=== PATIENT | female | born 1955 | race Caucasian/White ===

== ENCOUNTER → 2016-03-21 | Day surgery (SDC) | payer MEDICARE, OTHER ==
[~2016-03-21] MED LIST: ALPRAZolam 0.25 MG TAB ONE
--- NOTE | 2016-03-21 14:17 | MM ---
EXAMINATION TYPE: MG discontinued stereo core LT DATE OF EXAM: 03/21/2016 11:34 AM COMPARISON: Outside mammogram August 06, 2016. CLINICAL HISTORY: Prior left-sided breast cancer with new abnormal mammogram TECHNIQUE: Stereotactic guided core biopsy of left breast. FINDINGS: The procedure of stereotactic guided core biopsy was explained to the patient. Benefits, a lternatives, and risks were discussed. An informed consent was then obtained. The [facility] pathway for biopsy was chosen. Shortness pathway was cranial approach. Upon trying to localize the area of concern due to posterior location and deformity related to prior lumpectomy and treatment changes, area cannot BE successfully localized for safe stereotactic guided core biopsy. Mcguire rgeon canceled procedure. Options at this point include short term mammogram follow-up as area could reflect dystrophic calcifi cations at scar site, targeted ultrasound correlation, or attempted surgical reexcision. IMPRESSION: UNSUCCESSFUL STEREOTACTIC GUIDED CORE BIOPSY OF AREA OF CONCERN IN THE LEFT BREAST, PROCEDURE CANCELE D.
== END ==
LOC: RADMAMWWP 09:50
PROVIDERS: ATTEND Surgery
DX: R92.8 Other abnormal and inconclusive findings on diagnostic imaging of breast (principal); Z85.3 Personal history of malignant neoplasm of breast; Z98.890 Other specified postprocedural states; Z53.09 Procedure and treatment not carried out because of other contraindication

== ENCOUNTER 2016-03-24 07:55 | Day surgery (SDC) | payer MEDICARE, OTHER ==
[2016-03-23 08:53] VITALS: BMI 24.2
[~2016-03-24 07:55] MED LIST changes: -ALPRAZolam 0.25 MG TAB ONE; +DEXAMETHASONE SOD PHOSPHATE 10 MG/ML 1 ML VIAL IV ONE; +HEPARIN SODIUM,PORCINE 5,000 UNIT/ML 1 ML VIAL SQ ONE; +HYDROmorphone 1 MG/ML 1 ML SYRINGE IVP PRN; +LACTATED RINGERS 1,000 ML IV SCH; +MIDAZOLAM 2 MG/2 ML VIAL IV PRN; +ONDANSETRON 4 MG/2 ML VIAL IVP ONE; +SCOPOLAMINE 1.5MG/72HR PATCH TRANSDERM ONE; +ceFAZolin 2 GM in SODIUM CHLORIDE 0.9% 100 ML IVPB ONE
--- NOTE | 2016-03-24 08:04 | P.GSHP ---
History of Present Illness H&P Date: 03/24/16 Chief Complaint: Abnormal left mammogram This is a 60-year-old female who had a recent abnormality on left mammogram. Patient was initially scheduled for core biopsy. Due to the location the core biopsy cannot be performed. The patient appears history of left breast cancer. She presents today for left breast biopsy with needle localization. - Constitutional Constitutional: Reports as per HPI Past Medical History Past Medical History: Cancer Additional Past Medical History / Comment(s): breast cancer 8 yrs ago History of Any Multi-Drug Resistant Organisms: None Reported Past Surgical History: Breast Surgery, Cholecystectomy, Hysterectomy Additional Past Surgical History / Comment(s): mu. cataract removal. left breast lumpectomy with radiation Past Anesthesia/Blood Transfusion Reactions: No Reported Reaction Past Psychological History: Anxiety Smoking Status: Never smoker Past Alcohol Use History: None Reported Past Drug Use History: None Reported - Past Family History Mother Family Medical History: Cancer Additional Family Medical History / Comment(s): lung cancer Sister(s) Family Medical History: Cancer Additional Family Medical History / Comment(s): uterine and breast Medications and Allergies Home Medications Medication Instructions Recorded Confirmed Type No Known Home Medications [No 03/23/16 03/23/16 History Known Home Medications] Allergies Allergy/AdvReac Type Severity Reaction Status Date / Time No Known Allergies Allergy Verified 03/23/16 08:42 Surgical - Exam - General well developed, no distress - Eyes PERRL - ENT normal pinna - Neck no masses - Respiratory normal expansion - Cardiovascular Rhythm: regular - Abdomen Abdomen: soft, non tender Breasts exam shows no evidence of axillary or cervical adenopathy. Left breast has evidence of previous lumpectomy with radiation scarring. Right breast is within normal limits. Assessment and Plan Plan: Abnormal left mammogram. Perform left breast biopsy with needle localization.
[2016-03-24] MEDS ORDERED: ALPRAZolam 0.25 MG TAB PO STA (08:21)
[2016-03-24] MEDS ORDERED: LIDOCAINE 1% 20 ML VIAL (10MG/ML) FOR IV START INTRADERMA ONE (08:29)
[2016-03-24] MEDS ORDERED: LIDOCAINE 1% INJ 10MG/ML (20 ML MDV) SQ ONE (09:22)
[2016-03-24] MEDS ORDERED: SODIUM BICARB 4% 5 ML VIAL (0.48 MEQ/ML) MISCELLANE ONE (09:22)
[2016-03-24] MEDS ORDERED: SUCCINYLCHOLINE CHLORIDE 100 MG/5 ML SYR IV ONE (11:17)
[2016-03-24] MEDS ORDERED: MIDAZOLAM 2 MG/2 ML VIAL ONE (11:17)
[2016-03-24] MEDS ORDERED: fentaNYL (PF) 50 MCG/ML 2 ML AMP ONE (11:17)
[2016-03-24] MEDS ORDERED: ePHEDrine 50 MG/ML 1 ML AMP ONE (11:17)
[2016-03-24] MEDS ORDERED: LIDOCAINE 1% INJ 10MG/ML (20 ML MDV) ONE (11:17)
[2016-03-24] MEDS ORDERED: PROPOFOL 10 MG/ML 20 ML VIAL IV ONE (11:17)
[2016-03-24] MEDS ORDERED: BUPIVACAIN-EPI 0.25%-1:200,000 30 ML VIAL SQ ONE ×2 (11:49)
--- NOTE | 2016-03-24 12:10 | P.OP ---
Date of Procedure: 03/24/16 Preoperative Diagnosis: Abnormal left mammogram Postoperative Diagnosis: Defer to pathology Procedure(s) Performed: Left breast biopsy with needle localization Anesthesia: TOR Surgeon: Marco A Hilton Estimated Blood Loss (ml): 10 Pathology: other (Left breast biopsy with localization) Condition: stable Disposition: PACU Description of Procedure: Patient's placed on the operative table in supine position. She had been previously targeted in the wound center. The needle had been placed near the 12 o'clock position. This was right above her previous lumpectomy scar. The patient's breast was prepped and draped usual sterile fashion after she received general anesthesia. An elliptical skin incision was made around the wire. The incision included a portion of the previous lumpectomy scar. Using Harmonic scissors the breast tissue was divided. And a core of tissue was removed around the wire. The Bovie was used for hemostasis. The skin was closed interrupted 3-0 Monocryl suture. Dermabond was applied. The specimen was sent to mammography
[2016-03-24 12:17] VITALS: TEMP 96.8
[2016-03-24 12:25] VITALS: RESP 16
[2016-03-24] MEDS ORDERED: KETOROLAC 30 MG/ML 1 ML VIAL IVP ONE (12:41)
[2016-03-24 13:40] VITALS: BP 116/66; PULSE 96
--- NOTE | 2016-03-24 16:21 | MM ---
Mammographic specimen: INDICATION: Wire localization FINDINGS: Single specimen images presented. Wire is within the specimen. The localized calcifications within some distortion at prior biopsy site are within the specimen. IMPRESSIONS: 1. Successful wire localization and excision. Recommendations: 1. Recommendations are pending pathology results. Pathology Results: Benign BREAST, LEFT, WIRE GUIDED LOCALIZATION: FIBROSIS, FAT NECROSIS, DYSTROPHIC CALCIFICATIONS AND HEMOSIDERIN DEPOSITION CONSISTENT WITH SCAR, POSSIBLE PREVIOUS BIOPSY SITE. FOCAL FIBROCYSTIC CHANGE (STROMAL FIBROSIS, CYST FORMATION , AND APOCRINE METAPLASIA). Recommendation Follow up mammogram of the left breast in 6 months. MTDD
--- NOTE | 2016-03-24 16:26 | MM ---
EXAMINATION TYPE: MG pre op needle loc LT DATE OF EXAM: 03/24/2016 10:33 AM COMPARISON: 03/03/2015 CLINICAL HISTORY: Abnormal mammogram TECHNIQUE: Needle localization with wire placement and surgical excision of area of concern in the left breast. FINDINGS: The procedure of needle localization with wire placement and than surgical excision was explained to the patient. Benefits, alternatives, and risks were discussed. An informed consent was then obtained. The shortest pathway for procedure was chosen. Shortest pathway was craniocaudal approach. The overlying skin was prepped in usual fashion. Lidocaine buffered with bicarbonate was used as anesthetic into the skin and subcutaneous tissue up to the level of area of concern. A 7 cm needle was used. It was placed via a craniocaudal approach under mammographic guidance. Subsequent 90 degrees mammogram show the needle to be in satisfactory position relative to the targeted area. At this point, wire was placed and the needle was withdrawn. The wire was fixed to patient's skin. Images were marked for surgeon. The patient tolerated the procedure well without any immediate complication. The patient was kept in the radiology department for short stay after the procedure and then taken to surgery for surgical excision. Targeted calcifications and wire are identified in specimen mammogram. The patient was kept in hospital for short stay after the procedure and then discharged home in stable condition. IMPRESSION: Successful, uncomplicated needle localization with wire placement and surgical excision of suspicious group of calcifications in the left breast, full pathology results to follow. Recommendations: Recommendations are pending pathology results. Pathology Results: Benign BREAST, LEFT, WIRE GUIDED LOCALIZATION: FIBROSIS, FAT NECROSIS, DYSTROPHIC CALCIFICATIONS AND HEMOSIDERIN DEPOSITION CONSISTENT WITH SCAR, POSSIBLE PREVIOUS BIOPSY SITE. FOCAL FIBROCYSTIC CHANGE (STROMAL FIBROSIS, CYST FORMATION , AND APOCRINE METAPLASIA). Recommendation Follow up mammogram of the left breast in 6 months. CATARINA
== END 2016-03-24 14:04 | disposition home or self-care (01) ==
LOC: OR 07:55
PROVIDERS: ATTEND Surgery
DX: N60.32 Fibrosclerosis of left breast (principal); N64.1 Fat necrosis of breast; N60.82 Other benign mammary dysplasias of left breast; N64.89 Other specified disorders of breast; Z85.3 Personal history of malignant neoplasm of breast; Z80.3 Family history of malignant neoplasm of breast; Z80.49 Family history of malignant neoplasm of other genital organs; Z88.8 Allergy status to other drugs, medicaments and biological substances
CPT/HCPCS: 88307; 76098; 19281; 19301; J2250; J1644; J0690; J2001; J3010; J1885; J0330; J2704

== ENCOUNTER 2018-02-07 09:09 | Emergency (ER) | payer MEDICARE, OTHER ==
[2018-02-07] MEDS ORDERED: HYDROcodone/APAP 5-325MG 1 EACH TAB PO STA (10:33)
[2018-02-07] MEDS ORDERED: ONDANSETRON ODT 4 MG TAB PO STA (10:33)
--- NOTE | 2018-02-07 10:36 | ED ---
Extremity Problem HPI <Gamal Grant - Last Filed: 02/07/18 13:40> - General Source: patient, RN notes reviewed, old records reviewed Mode of arrival: wheelchair Limitations: physical limitation <Chani Spann - Last Filed: 02/07/18 13:47> - General Chief complaint: Extremity Problem,Nontraumatic Stated complaint: LEFT LEG SWELLING Time Seen by Provider: 02/07/18 10:22 - History of Present Illness Initial comments: Patient is a 62-year-old female who presents emergency department today with chief complaint of left leg swelling for 3 days. Patient states symptoms started when she was standing in her garage on [address]. She states that she's had progressive pain and swelling going from the lower leg up to her mid thigh. She has a history of breast cancer in remission. She is a nonsmoker. She denies any chest pain or shortness of breath. Patient denies any hormone use. She denies any history of blood disorders. She denies any falls or trauma to the cause the swelling and pain in her leg. (Chani Spann) - Related Data Home Medications Medication Instructions Recorded Confirmed No Known Home Medications 02/07/18 02/07/18 Allergies Allergy/AdvReac Type Severity Reaction Status Date / Time No Known Allergies Allergy Verified 02/07/18 10:57 Review of Systems ROS Other: All systems not noted in ROS Statement are negative. <Gamal Grant - Last Filed: 02/07/18 13:40> ROS Other: All systems not noted in ROS Statement are negative. <Chani Spann - Last Filed: 02/07/18 13:47> ROS Statement: Those systems with pertinent positive or pertinent negative responses have been documented in the HPI. Past Medical History Past Medical History: Cancer Additional Past Medical History / Comment(s): breast cancer 8 yrs ago History of Any Multi-Drug Resistant Organisms: MRSA Date of last positivie culture/infection: 05/04/16 MDRO Source:: wound Past Surgical History: Breast Surgery, Cholecystectomy, Hysterectomy Additional Past Surgical History / Comment(s): mu. cataract removal. left breast lumpectomy with radiation Past Anesthesia/Blood Transfusion Reactions: No Reported Reaction Past Psychological History: Anxiety Smoking Status: Never smoker Past Alcohol Use History: None Reported Past Drug Use History: None Reported - Past Family History Mother Family Medical History: Cancer Additional Family Medical History / Comment(s): lung cancer Sister(s) Family Medical History: Cancer Additional Family Medical History / Comment(s): uterine and breast <Chani Spann - Last Filed: 02/07/18 13:47> General Exam <Gamal Grant - Last Filed: 02/07/18 13:40> Limitations: physical limitation General appearance: alert, in no apparent distress Head exam: Present: atraumatic, normocephalic, normal inspection Eye exam: Present: normal appearance, PERRL, EOMI. Absent: scleral icterus, conjunctival injection, periorbital swelling ENT exam: Present: normal exam, mucous membranes moist Neck exam: Present: normal inspection. Absent: tenderness, meningismus, lymphadenopathy Respiratory exam: Present: normal lung sounds bilaterally. Absent: respiratory distress, wheezes, rales, rhonchi, stridor Cardiovascular Exam: Present: regular rate, normal rhythm, normal heart sounds. Absent: systolic murmur, diastolic murmur, rubs, gallop, clicks GI/Abdominal exam: Present: soft, normal bowel sounds. Absent: distended, tenderness, guarding, rebound, rigid Extremities exam: Present: full ROM, normal capillary refill. Absent: normal inspection, tenderness, pedal edema, joint swelling, calf tenderness Left Upper Leg exam: Present: swelling, erythema (Medial thigh) Knee exam: Present: swelling Lower Leg exam: Present: full ROM, tenderness, swelling, erythema (Patient has some erythematous any over the medial posterior knee and medial thigh.). Absent : normal inspection Ankle exam: Present: full ROM, swelling. Absent: normal inspection Neurovascular tendon exam: Present: no vascular compromise Gait: observed and limited by pain Back exam: Present: normal inspection Neurological exam: Present: alert, oriented X3, CN II-XII intact Psychiatric exam: Present: normal affect, normal mood Skin exam: Present: warm, dry, intact, normal color. Absent: rash <Chani Spann - Last Filed: 02/07/18 13:47> - General Exam Comments Initial Comments: This patient's a 62-year-old female. She appears older than stated age. ( Chani Spann) Vital Signs 02/07/18 09:34 Temperature 98 F Pulse Rate 95 Respiratory 18 Rate Blood Pressure 106/66 O2 Sat by Pulse 97 Oximetry Medical Decision Making - Lab Data Result diagrams: 02/07/18 12:15 02/07/18 12:15 <Gamal Grant - Last Filed: 02/07/18 13:40> - Lab Data Result diagrams: 02/07/18 12:15 02/07/18 12:15 - Radiology Data Radiology results: report reviewed <Chani Spann - Last Filed: 02/07/18 13:47> - Medical Decision Making Patient with 3 days of left leg swelling. Swelling is extensive on exam, distal pulses are intact. There is concern for DVT, ultrasound is obtained, shows clot extending into the external iliac. Case is discussed with vascular surgery on-call, Dr. Fenton, recommends evaluation by the vascular surgeons at [facility]. I did discuss the case with Dr. Jacobo, will accept patient as transfer for possible thrombolysis. Case is also discussed with the ER physician at [facility] Dr. Rajput, who will accept. (Gamal Grant) 52-year-old female presents return to the acute playing of left leg splint 3 days. Ultrasound is positive for extensive DVT from the external iliac vein through the proximal calf veins. Patient was initiated on heparin. Dr. Aranda discussed the case with Dr. Fenton. He recommended doing a CT of the abdomen and pelvis. CT abdomen and this does show evidence of the blood clot extending from the external iliac vein. The common iliac vein is diminished. Patient case was again discussed with Dr. Vazquez to accept transfer for Patient to be admitted for likely thrombectomy. (Chani Spann) - Lab Data Lab Results 02/07/18 02/07/18 02/07/18 Range/Units 12:15 12:15 12:15 WBC 16.5 H (3.8-10.6) k/uL RBC 4.04 (3.80-5.40) m/uL Hgb 11.8 (11.4-16.0) gm/dL Hct 34.1 (34.0-46.0) % MCV 84.3 (80.0-100.0) fL MCH 29.3 (25.0-35.0) pg MCHC 34.8 (31.0-37.0) g/dL RDW 13.9 (11.5-15.5) % Plt Count 156 (150-450) k/uL Neutrophils % 86 % Lymphocytes % 5 % Monocytes % 7 % Eosinophils % 0 % Basophils % 0 % Neutrophils # 14.2 H (1.3-7.7) k/uL Lymphocytes # 0.8 L (1.0-4.8) k/uL Monocytes # 1.2 H (0-1.0) k/uL Eosinophils # 0.1 (0-0.7) k/uL Basophils # 0.0 (0-0.2) k/uL PT 10.6 (9.0-12.0) sec INR 1.0 (<1.2) APTT 25.3 (22.0-30.0) sec Sodium 137 (137-145) mmol/L Potassium 3.9 (3.5-5.1) mmol/L Chloride 104 (98-107) mmol/L Carbon Dioxide 23 (22-30) mmol/L Anion Gap 10 mmol/L BUN 15 (7-17) mg/dL Creatinine 0.81 (0.52-1.04) mg/dL Est GFR (CKD-EPI)AfAm >90 (>60 ml/min/1.73 sqM) Est GFR (CKD-EPI)NonAf 78 (>60 ml/min/1.73 sqM) Glucose 127 H (74-99) mg/dL Calcium 9.0 (8.4-10.2) mg/dL Total Bilirubin 1.7 H (0.2-1.3) mg/dL AST 23 (14-36) U/L ALT 28 (9-52) U/L Alkaline Phosphatase 34 L (38-126) U/L Total Protein 7.1 (6.3-8.2) g/dL Albumin 3.6 (3.5-5.0) g/dL 02/07/18 13:46 EKG performed at 1327 shows normal sinus rhythm possible left atrial enlargement. No specific T wave abnormality. Abnormal EKG noted. Ventricular rate 93 bpm. VT interval is 170 ms. QRS duration is 86 ms. QT QTC 352/437 ms. (Chani Spann) - Radiology Data Left leg exam is positive for DVT from external iliac vein through proximal calf veins. CT shows evidence of DVT involving the left external iliac vein extending into the left femoral vein. There is surrounding edema and soft tissue swelling noted. (Chani Spann) Disposition Is patient prescribed a controlled substance at d/c from ED?: No Time of Disposition: 13:41 - Out of Hospital Transfer - Req. Specs Out of Hospital Transfer - Requested Specifics: Other Emergency Center ( Transfer to [facility]) <Gamal Grant - Last Filed: 02/07/18 13:40> <Chani Spann - Last Filed: 02/07/18 13:47> Clinical Impression: Deep vein thrombosis of lower extremity Disposition: OTHER INSTITUTION NOT DEFINED Condition: Stable Referrals: Britton Ramirez DO [Primary Care Provider] - 1-2 days
--- NOTE | 2018-02-07 11:27 | US ---
EXAMINATION TYPE: US venous doppler duplex LE LT DATE OF EXAM: 02/07/2018 10:32 AM COMPARISON: NONE CLINICAL HISTORY: Pain. Left leg pain and swelling x 3 days SIDE PERFORMED: Left TECHNIQUE: The lower extremity deep venous system is examined utilizing real time linear array sonog jessica with graded compression, doppler sonography and color-flow sonography. VESSELS IMAGED: External Iliac Vein (EIV) Common Femoral Vein Deep Femoral Vein Greater Saphenous Vein * Femoral Vein Popliteal Vein Small Saphenous Vein * Proximal Calf Veins (* superficial vessels) Left Leg: Positive for DVT from EIV through proximal calf veins IMPRESSION: Examination is positive for DVT as noted above.
[2018-02-07] MEDS ORDERED: SODIUM CHLORIDE 0.9% 1,000 ML IV ONE (11:40)
[2018-02-07] MEDS ORDERED: HEPARIN SODIUM,PORCINE 5,000 UNIT/ML 1 ML VIAL IV PRN (11:41)
[2018-02-07] MEDS ORDERED: HEPARIN SODIUM,PORCINE 5,000 UNIT/ML 1 ML VIAL IV ONE (11:41)
[2018-02-07] MEDS ORDERED: HEPARIN SOD,PORK IN 0.45% NACL 25,000 UNIT in 0.45% NACL 1 250ML.BAG IV SCH (11:45)
[2018-02-07] MEDS ORDERED: SODIUM CHLORIDE 0.9% 1,000 ML IV SCH (11:45)
[2018-02-07 12:47] LABS: Basophils % (A) 0 %; Eosinophils # (A) 0.1 k/uL (0-0.7); Eosinophils % (A) 0 %; HCT 34.1 % (34.0-46.0); HGB 11.8 gm/dL (11.4-16.0); Lymphocytes # (A) 0.8 k/uL (1.0-4.8); Lymphocytes % (A) 5 %; MCH 29.3 pg (25.0-35.0); MCHC 34.8 g/dL (31.0-37.0); MCV 84.3 fL (80.0-100.0); Mean Platelet Volume 7.1; Monocytes # (A) 1.2 k/uL (0-1.0); Monocytes % (A) 7 %; Neutrophils # (A) 14.2 k/uL (1.3-7.7); Neutrophils % (A) 86 %; Platelet Count 156 k/uL (150-450); RBC 4.04 m/uL (3.80-5.40); RDW 13.9 % (11.5-15.5); WBC 16.5 k/uL (3.8-10.6)
[2018-02-07 12:57] LABS: Partial Thromboplastin Time 25.3 sec (22.0-30.0); Prothrombin Time 10.6 sec (9.0-12.0)
[2018-02-07 12:58] LABS: ALT 28 U/L (9-52); AST 23 U/L (14-36); Albumin 3.6 g/dL (3.5-5.0); Alkaline Phosphatase 34 U/L (38-126); Anion Gap 10 mmol/L; Blood Urea Nitrogen 15 mg/dL (7-17); Carbon Dioxide 23 mmol/L (22-30); Chloride 104 mmol/L (98-107); Glucose 127 mg/dL (74-99); Potassium 3.9 mmol/L (3.5-5.1); Sodium 137 mmol/L (137-145); Total Bilirubin 1.7 mg/dL (0.2-1.3); Total Protein 7.1 g/dL (6.3-8.2)
--- NOTE | 2018-02-07 13:16 | CT ---
EXAMINATION TYPE: CT abdomen pelvis w con DATE OF EXAM: 02/07/2018 COMPARISON: None HISTORY: DVT-left leg CT DLP: 566.8 mGycm CONTRAST: CT scan of the abdomen and pelvis is performed without Oral Contrast and with IV Contrast, patient in jected with 100 mL of Isovue 300. FINDINGS: LUNG BASES-: No visible nodule. No infiltrate. Small hiatal hernia is detected. LIVER/GB: The gallbladder surgically absent. No space occupying hepatic lesion. Biliary tree is of normal caliber. There is mild hepatic steatosis. PANCREAS: No inflammation. No distinct mass. SPLEEN: No splenic enlargement. No lesion seen. ADRENALS: No nodule. No thickening. KIDNEYS/BLADDER: No hydronephrosis. No nephrolithiasis. No distinct renal mass. Urinary bladder g rossly unremarkable. BOWEL: Normal appendix. Normal bowel caliber. No inflammation. GENITAL ORGANS: No gross abnormality. LYMPH NODES: No greater than 1cm abdominal or pelvic lymph nodes are appreciated. AORTA: No significant abnormality. OSSEOUS STRUCTURES: No significant abnormality is seen. OTHER: There is evidence for DVT involving the left external iliac vein extending to the left femoral vein. There is surrounding edema and soft tissue swelling noted. Left common iliac vein is diminutiv e in size. Internal iliac veins appear to be patent. IMPRESSION: 1. There is evidence for DVT involving the left external iliac vein extending to the left femoral vei n. There is surrounding edema and soft tissue swelling noted.
[2018-02-07 14:36] VITALS: BP 152/69; PULSE 99; RESP 18; TEMP 98.8
== END 2018-02-07 14:48 | disposition short-term general hospital (02) ==
LOC: EC 09:09
DX: I82.422 Acute embolism and thrombosis of left iliac vein (principal); I82.4Y2 Acute embolism and thrombosis of unspecified deep veins of left proximal lower extremity; Z85.3 Personal history of malignant neoplasm of breast
CPT/HCPCS: 36415; 93005; 80053; 85025; 85610; 85730; 93971; 74177; 99285; 96365; 96366; 96376; 96361; J1644 ×2; Q9967

== ENCOUNTER → 2019-11-04 | Outpatient (CLI) | payer MEDICARE, OTHER ==
--- NOTE | 2019-11-04 11:24 | CT ---
EXAMINATION TYPE: CT abdomen pelvis w con DATE OF EXAM: 11/04/2019 COMPARISON: 02/07/2018 HISTORY: Hepatomegaly, breast cancer CT DLP: 501.4 mGycm Automated exposure control for dose reduction was used. CONTRAST: CT scan of the abdomen pelvis is performed with IV Contrast, patient injected with 100 mL of Isovue 3 70. FINDINGS- LUNG BASES- No significant abnormality is appreciated. LIVER/GB-liver appears enlarged measuring 21 cm and is low in attenuation compatible with hepatic ronal atosis. There is no evidence of a hepatic mass. Postcholecystectomy changes noted.. PANCREAS- No gross abnormality is seen. SPLEEN- No gross abnormality is seen. ADRENALS- No gross abnormality is seen. KIDNEYS/BLADDER- no hydronephrosis nephrolithiasis or renal mass. BOWEL-bowel gas pattern nonspecific. There is a small hiatal hernia. Changes of diverticulosis noted. . LYMPH NODES- No greater than 1cm abdominal or pelvic lymph nodes areappreciated. OSSEOUS STRUCTURES-hypertrophic and degenerative changes of the spine. Hypertrophic changes of the sp inous processes are seen most pronounced in the lumbar spine region and stable from prior exam. 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 Findings stable. OTHER- correlate for previous hysterectomy. Soft tissue nodule along the bilateral iliac chain stabl e from prior exam measuring approximately 1.4 cm bilaterally most typical of residual ovaries. Correl ate with surgical history. Findings stable from prior exam. Atherosclerotic change of the aorta. No e vidence of aneurysm. No free fluid. IMPRESSION- 1. Hepatomegaly with findings compatible with hepatic steatosis. No intrahepatic mass. No diagnostic evidence of metastases. 2. Small hiatal hernia. 3. Diverticulosis with no CT evidence of diverticulitis.
== END | disposition home or self-care (01) ==
LOC: RADCTMAIN 09:06
PROVIDERS: ATTEND Internal Medicine Hematology & Oncology
DX: C50.412 Malignant neoplasm of upper-outer quadrant of left female breast (principal); R16.0 Hepatomegaly, not elsewhere classified; K44.9 Diaphragmatic hernia without obstruction or gangrene; K57.90 Diverticulosis of intestine, part unspecified, without perforation or abscess without bleeding; Z88.8 Allergy status to other drugs, medicaments and biological substances
CPT/HCPCS: 82565; 84520; 74177; 36415; Q9967 ×2

== ENCOUNTER → 2019-11-18 | Outpatient (CLI) | payer MEDICARE, OTHER ==
--- NOTE | 2019-11-18 08:31 | MR ---
EXAMINATION TYPE: MR liver wo/w con DATE OF EXAM: 11/18/2019 COMPARISON: CT abdomen and pelvis November 04, [address] 2018. HISTORY: Abnormal CT, history of breast cancer. CONTRAST: Standard multiplanar, multisequence MRI departmental protocol utilizing 7.5 mL intravenous Gadavist g adolinium contrast. Imaging is performed of the abdomen focusing on the liver. FINDINGS: Examination is noted suboptimal as patient unable to hold breath. Liver: Liver remains upper limits of normal in size with prominent right hepatic lobe. There is diffu se signal dropout consistent with diffuse fatty infiltration. There is no concerning solid or cystic mass identified on images saved. Patent main portal vein is noted and not dilated. There are patent h epatic veins draining into IVC. No surrounding ascites. Gallbladder noted surgically absent. No suspi cious intrahepatic or extrahepatic biliary dilatation. Other: Spleen, pancreas, and both adrenal glands are both within normal limits. Slight cortical thinning mu aterally. Renal size is lower limits of normal. No hydronephrosis or concerning renal masses. Lung bases are clear. No suspicious small or large bowel dilatation. No abdominal ascites. No greater than 1 cm abdominal adenopathy. Small-sized hiatal hernia redemonstrated. IMPRESSION: Diffuse fatty infiltration of liver redemonstrated. No concerning intrahepatic masses or intrahepatic ductal dilatation.
== END | disposition home or self-care (01) ==
LOC: RADMRIMAIN 07:21
PROVIDERS: ATTEND Internal Medicine Hematology & Oncology
DX: K76.0 Fatty (change of) liver, not elsewhere classified (principal)
CPT/HCPCS: 74183; A9585

== ENCOUNTER → 2019-12-17 | Outpatient (CLI) | payer MEDICARE ==
--- NOTE | 2019-12-17 14:33 | BD ---
EXAMINATION TYPE: Axial Bone Density DATE OF EXAM: 12/17/2019 COMPARISON: NONE CLINICAL HISTORY: 64 YR OLD FEMALE.....ICD-10 CODE: Z78.0 POST MENOPAUSAL Height: 64.4 Weight: 171 FRAX RISK QUESTIONS: NOTHING ADDITIONAL TO NOTE HERE RISK FACTORS HISTORY OF: History of Wrist Fracture: BOTH A TEEN Postmenopausal woman: YES AT AGE 51 Lost more than 2 inches in height since high school: YES Hyperparathyroidism: NO Adrenal Insufficiency: NO MEDICATIONS: Additional Medications: XANAX, NEEDED, HX OF CHEMO AND RADIATION, REFLUX MEDS, Additional History: LT BREAST CANCER, 11 YRS AGO, ANXIETY, REFLUX, OSTEO ARTHRITIS, TREMORS, NEUROLO GICAL EXAM MEASUREMENTS: Bone mineral densitometry was performed using the iCouch System. Bone mineral density as measured about the Lumbar spine is: ----- L1-L4(G/cm2): 1.321 T Score Values are as follows: ----- L1: 0.4 ----- L2: 0.0 ----- L3: 2.6 ----- L4: 1.1 ----- L1-L4: 1.2 Bone mineral density THIS IS HER FIRST BONE DENSITY SCAN........BASELINE STUDY Bone mineral density about the R hip (g/cm2): 0.784 Bone mineral density about the L hip (g/cm2): 0.875 T Score values are as follows: -----R Neck: -0.7 -----L Neck: -1.0 -----R Total: -1.8 -----L Total: -1.1 Bone mineral density BASELINE STUDY FRAX%S: THERE IS A 12.6% CHANCE FOR A MAJOR OSTEOPOROTIC FX AND A 1.1% FOR HIP.....PROBABILITY FOR FX IN 10 YRS TIME IMPRESSION: Osteopenia (T Score between -2.5 and -1). There is slightly increased risk of fracture and the patient may be considered for treatment. Re-Screen 2-5 years. NOTE: T-SCORE=SD OF THE YOUNG ADULT MEAN.
== END | disposition home or self-care (01) ==
LOC: RADBDWWP 12:54
PROVIDERS: ATTEND Family Medicine
DX: Z13.820 Encounter for screening for osteoporosis (principal); M85.80 Other specified disorders of bone density and structure, unspecified site; Z78.0 Asymptomatic menopausal state
CPT/HCPCS: 77080

== ENCOUNTER → 2020-12-23 | Outpatient (CLI) | payer MEDICARE ==
--- NOTE | 2020-12-23 22:11 | MR ---
EXAMINATION TYPE: MR brain wo/w con DATE OF EXAM: 12/23/2020 COMPARISON: NONE HISTORY: Stroke like events, tumor. History of breast cancer. TECHNIQUE: Multiplanar, multisequence images of the brain and brainstem is performed without and with IV contras t, utilizing 7.5 mL intravenous Gadavist . FINDINGS: Diffusion weighted images demonstrate no evidence of a recent infarct or other diffusion ab normality. There is mild ventricular and sulcal prominence. Occasional scattered T2 hyperintense foc us. Roughly 10 small scattered lesions are present. Midline structures demonstrate normal morphology. The craniocervical junction appears within normal limits. Post contrast images demonstrate no abnormal enhancement. The dural venous sinuses appear pa tent. Some artifact distortion or level of the globes. Paranasal sinuses are grossly clear. IMPRESSION: Mild diffuse cerebral atrophy and chronic small vessel ischemic change. No suspicious enh ancing masses. No MRI evidence for recent infarct.
== END | disposition home or self-care (01) ==
LOC: RADMRIMAIN 11:08
PROVIDERS: ATTEND Psychiatry & Neurology Neurology
DX: I67.82 Cerebral ischemia (principal); Z85.3 Personal history of malignant neoplasm of breast
CPT/HCPCS: 70553; A9585

== ENCOUNTER → 2023-03-28 | Outpatient (CLI) | payer MEDICARE ==
[2023-03-28 08:04] LABS: African American GFR (CKD) 85 (>60 ml/min/1.73 sqM); Blood Urea Nitrogen 9 mg/dL (7-17); Non-African American GFR(CKD) 74 (>60 ml/min/1.73 sqM)
--- NOTE | 2023-03-28 10:26 | CT ---
EXAMINATION TYPE: CT ChestAbdPelvis w con DATE OF EXAM: 03/28/2023 COMPARISON: HISTORY: breast ca follow up CT DLP: 1178 mGycm Automated exposure control for dose reduction was used. CONTRAST: CT scan of the chest, abdomen and pelvis is performed with Oral Contrast and with IV Contrast, patien t injected with 100 mL of Isovue 300. FINDINGS: CHEST: Please reference Mediastinum and Idalmis: There is no axillary, mediastinal or hilar lymphadenopathy. Pleural and Pericardial spaces: There are no pleural or pericardial effusions. Cardiovascular: The thoracic aorta is normal in size without evidence of aneurysm or dissection. Ther e are mild patchy coronary artery calcifications. Pulmonary Artery: There are no central pulmonary arterial filling defects. Lung Parenchyma and Airways: The lungs are clear. ABDOMEN: Liver and Biliary system: Normal. Adrenal glands: Normal. Kidneys and ureters: Normal. Spleen: Normal. Pancreas: Normal. Gallbladder: Surgically absent. Lymph nodes, Peritoneum and mesentery: There is no mesenteric or retroperitoneal lymphadenopathy. Gastrointestinal tract: There are no dilated loops of bowel or free intraperitoneal air. . The appe ndix is normal. There is mild to moderate descending colonic and sigmoid colonic diverticulosis witho ut evidence of diverticulitis. Aorta/IVC: There is moderate vascular calcification and plaque seen throughout the abdominal aorta without evidence of aneurysmal dilation or dissection.. IVC normal. Abdominal wall: Normal. PELVIS: Fluid: There is no free fluid in the pelvis. Lymph Nodes: There is no pelvic or inguinal lymphadenopathy.. Urinary bladder: Normal. BONES: There are no osseous destructive lesions.. ADDITIONAL SIGNIFICANT FINDINGS: None. IMPRESSION: 1. No acute process within the chest, abdomen or pelvis. 2. Additional findings as above.
--- NOTE | 2023-03-28 20:03 | NM ---
EXAMINATION TYPE: NM bone scan whole body DATE OF EXAM: 03/28/2023 COMPARISON: Relation CT same day CLINICAL INDICATION: Female, 67 years old with history of C50.412 Breast cancer; R63.4 Abn weight los s; TECHNIQUE: Delayed whole-body scanning was performed following the injection of 25.1 mCi Tc 99m MDP. Images acquired 3 hours post injection. 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 The re is focal degenerative tracer activity within the left midfoot also noted. No suspicious distributi on of activity to suggest metastatic disease to the bone. IMPRESSION: No scintigraphic evidence for osseous metastatic disease.
== END | disposition home or self-care (01) ==
LOC: RADNMMAIN 07:14
PROVIDERS: ATTEND Internal Medicine Hematology & Oncology
DX: I70.0 Atherosclerosis of aorta (principal); C50.412 Malignant neoplasm of upper-outer quadrant of left female breast; I25.10 Atherosclerotic heart disease of native coronary artery without angina pectoris; R63.4 Abnormal weight loss; Z90.49 Acquired absence of other specified parts of digestive tract
CPT/HCPCS: 82565; 84520; 71260; 74177; 36415; 78306; A9503; Q9967

== ENCOUNTER → 2023-05-10 | Outpatient (CLI) | payer MEDICARE, OTHER ==
--- NOTE | 2023-05-10 20:18 | US ---
EXAMINATION TYPE: US venous doppler duplex UE LT DATE OF EXAM: 05/10/2023 COMPARISON: NONE CLINICAL INDICATION: Female, 68 years old with history of R22.32 SWELLING LT UPPER ARM; Lumpectomy 10 years ago; Recent swelling SIDE PERFORMED: Left Right Arm: NA Left Arm: Negative for DVT IMPRESSION: 1. Right upper extremity ultrasound negative for deep venous thrombosis.
== END | disposition home or self-care (01) ==
LOC: RADUSWWP 13:30
PROVIDERS: ATTEND Family Medicine
DX: R22.32 Localized swelling, mass and lump, left upper limb (principal)

== ENCOUNTER → 2023-12-05 | Outpatient (CLI) | payer MEDICARE, OTHER ==
--- NOTE | 2023-12-06 18:15 | MM ---
Reason for Exam: Screening (asymptomatic). Last mammogram was performed 1 year(s) and 3 month(s) ago. Patient History: Menarche at age 11. First Full-Term at age 31. Late child-bearing (after 29). Hysterectomy at age 39. Postmenopausal. Breast cancer, age 53. 02/18/2008, Excisional Biopsy on the Left side. 03/24/2016, Benign Core Biopsy on the left side. 03/21/2016, MG discontinued stereo core LT on the left side. Sister had breast cancer. Sister had breast cancer. Prior Study Comparison: 12/18/2007 Bilateral Screening Mammogram, [facility]. 01/02/2008 Left Diagnostic Mammogram, [facility]. 01/12/2009 Bilateral Diagnostic Mammogram, [facility]. 08/26/2021 Bilateral Screening Mammogram, [facility]. 08/28/2022 Bilateral Screening Mammogram, [facility]. Tissue Density: There are scattered areas of fibroglandular density. Findings: Analyzed By CAD. Postsurgical and posttreatment changes left breast. Nonenlarged axillary lymph node is now better seen, partially visualized on the prior exam. Areas of asymmetric density remain unchanged. There is no suspicious group of microcalcifications or new suspicious mass in either breast. Overall Assessment: Benign, BI-RAD 2 Management: Screening Mammogram of both breasts in 1 year. . Patient should continue monthly self-breast exams. A clinical breast exam by your physician is recommended on an annual basis. This exam should not preclude additional follow-up of suspicious palpable abnormalities. [facility], , 12/06/2023 6:12 PM. Electronically signed and approved by: William Sears M.D. Radiologist
== END | disposition home or self-care (01) ==
LOC: RADMAMWWP 11:18
PROVIDERS: ATTEND Internal Medicine Hematology & Oncology
CPT/HCPCS: 77063; 77067